=== PATIENT | female | born 1965 | race Caucasian/White ===

== ENCOUNTER → 2021-10-12 | Outpatient (CLI) | payer OTHER ==
[~2021-10-12] MED LIST: ATORVASTATIN PO; BAYER CHEWABLE81 MG PO; BUSPIRONE HCL5 MG PO; CALCIUM CARBON500 MG PO; COREG12.5 MG PO; DAILY VALUE1 EACH PO; EMGALITY120 MG/1 M INJ; KEPPRA750 MG PO; LASIX20 MG PO; LIPITOR TAB 2020 MG PO; POTASSIUM CHLO10 ME1 PO; PROTONIX40 MG PO; TOPAMAX200 MG PO; VENLAFAXINE HC150 M1 PO; VISTARIL 25 MG25 MG PO; VITAMIN B COMP1 EAC1 PO; VITAMIN D21250 MCG PO; ZANAFLEX4 MG PO
[2021-10-12 10:48] LABS: HEMOGLOBIN 12.6 gm/dl (12.3-15.3); RED BLOOD COUNT 4.64 M/UL (4.00-5.10); WHITE BLOOD COUNT 13.8 K/UL (4.5-11.0)
[2021-10-12 11:14] LABS: BUN/CREATININE RATIO 15 (0-10)
== END ==
LOC: OPSV2 09:30 → EMI 09:35
PROVIDERS: Orthopaedic Surgery
DX: Z01.818 Encounter for other preprocedural examination (principal); S32.031A Stable burst fracture of third lumbar vertebra, initial encounter for closed fracture; M51.34 Other intervertebral disc degeneration, thoracic region
CPT/HCPCS: 36415; 71046; 72156; 72157; 72158; 80048; 85027; 93005; A9577

== ENCOUNTER → 2021-10-15 | Outpatient (CLI) | payer OTHER | LOC: LAB 11:15 | DX: Z01.812 Encounter for preprocedural laboratory examination (principal) | CPT/HCPCS: 86850; 86900; 86901 ==

== ENCOUNTER → 2021-10-16 | Day surgery (SDC) | payer OTHER ==
[~2021-10-16] VITALS: Ht 167.6 cm; Wt 68.5 kg
== END | disposition home or self-care (01) ==
LOC: OR 06:02
DX: S32.038A Other fracture of third lumbar vertebra, initial encounter for closed fracture (principal); S24.114A Complete lesion at T11-T12 level of thoracic spinal cord, initial encounter; W19.XXXA Unspecified fall, initial encounter; E78.5 Hyperlipidemia, unspecified; K21.9 Gastro-esophageal reflux disease without esophagitis; F41.9 Anxiety disorder, unspecified; F32.A Depression, unspecified; I48.91 Unspecified atrial fibrillation; F17.210 Nicotine dependence, cigarettes, uncomplicated; Z90.49 Acquired absence of other specified parts of digestive tract; Z88.8 Allergy status to other drugs, medicaments and biological substances; Z79.899 Other long term (current) drug therapy; Z79.82 Long term (current) use of aspirin; Z98.51 Tubal ligation status
CPT/HCPCS: J0690; J1100; J1170; J2250; J2704; J3010; J7120; Q9967